=== PATIENT | male | born 1995 | race Caucasian/White ===

== ENCOUNTER → 2019-12-13 | Emergency (ER) | payer OTHER ==
[~2019-12-13] VITALS: Ht 172.7 cm; Wt 79.4 kg
[~2019-12-13] MED LIST: BACITRACIN TOP OINT 1 UD PKG TOP ONE; KETOROLAC TROMETH 60MG/2ML VIAL IM ONE; LIDOCAINE 1% HCL (LOCAL ANESTH.) INJ 20ML MDV IJ ONE; LIDOCAINE 1% HCL (LOCAL ANESTH.) INJ 20ML MDV ONE; cefTRIAXone SOD 1,000 MG VL IM ONE
[2019-12-13 19:18] VITALS: BP 116/61
== END | disposition home or self-care (01) ==
LOC: ER 16:05
DX: S41.111A Laceration without foreign body of right upper arm, initial encounter (principal); S21.111A Laceration without foreign body of right front wall of thorax without penetration into thoracic cavity, initial encounter; V86.56XA Driver of dirt bike or motor/cross bike injured in nontraffic accident, initial encounter; Y93.55 Activity, bike riding; Y92.410 Unspecified street and highway as the place of occurrence of the external cause; Y99.8 Other external cause status
CPT/HCPCS: 12005; 71045; 72040; 73080; 73090; 73502; 96372; 99284; J0696; J1885; J2001

== ENCOUNTER → 2019-12-15 | Emergency (ER) | payer OTHER ==
[~2019-12-15] VITALS: Ht 170.2 cm; Wt 74.8 kg
[2019-12-15 11:24] VITALS: BP 116/64
== END | disposition home or self-care (01) ==
LOC: ER 10:50
DX: S51.811D Laceration without foreign body of right forearm, subsequent encounter (principal); V49.9XXD Car occupant (driver) (passenger) injured in unspecified traffic accident, subsequent encounter